=== PATIENT | male | born 1940 | race Caucasian/White ===

== ENCOUNTER 2016-04-07 05:58 | Day surgery (SDC) | payer OTHER, BC ==
[~2016-04-07] VITALS: Ht 177.8 cm; Wt 95.8 kg
[2016-04-07 06:48] VITALS: BP 179/96; PULSE 76; RESP 20; TEMP 97.9; O2SAT 93
[2016-04-07] MEDS ORDERED: MOBI15TA PO (06:58)
[2016-04-07] MEDS ORDERED: IBUP800T23 PO ×2 (06:58)
[2016-04-07] MEDS ORDERED: ZANT150T2 PO (06:58)
[2016-04-07] MEDS ORDERED: PERC10TA27 PO (06:58)
[2016-04-07] MEDS ORDERED: AMLO5TAB2 PO (06:58)
[2016-04-07] MEDS ORDERED: ATOR10TA15 PO (06:58)
[2016-04-07] MEDS ORDERED: METO-309 PO (06:58)
[2016-04-07] MEDS ORDERED: ACET1CAP18 PO (06:58)
[2016-04-07] MEDS ORDERED: ASPI81CH CHEW (06:58)
[2016-04-07] MEDS ORDERED: VANCOMYCIN 1000 MG/NS 250 ML - implanted port/tunneled catheter IV SCH ×2 (07:00)
[2016-04-07] MEDS ORDERED: CHLORHEXIDINE GLUCONATE 2 % 1 PACK (2 CLOTHS) TOPICAL SCH (07:00)
[2016-04-07] MEDS ORDERED: SODIUM CHLORIDE 0.9% 1000 ML IV SCH (07:00)
[2016-04-07] MEDS ORDERED: ceFAZolin 2 GM PREMIX 50 ML - implanted port/tunneled catheter insertion IV SCH (07:00)
[2016-04-07] MEDS ORDERED: POVIDONE IODINE 5% (ANTISEPSIS KIT) 4 APPLICATIONS EACH NARE SCH (07:00)
[2016-04-07] MEDS ORDERED: MIDAZOLAM HCL 5 MG/5 ML VIAL ONE (07:57)
[2016-04-07] MEDS ORDERED: fentaNYL CITRATE 250 MCG/5 ML AMP ONE (07:57)
[2016-04-07] MEDS ORDERED: LIDOCAINE 1%/EPINEPHrine 1:100,000 SOLN 20 ML VIAL ONE (08:21)
[2016-04-07 09:15] VITALS: BP 144/93; PULSE 58; RESP 16; TEMP 97.5; O2SAT 95
--- NOTE | 2016-04-07 09:22 | PD.RAD ---
Post Procedure Progress Note Pre Procedure Diagnosis: (1) Neuroendocrine carcinoma metastatic to multiple sites Post Procedure Diagnosis: (1) Neuroendocrine carcinoma metastatic to multiple sites Procedure Date: Apr 07, 2016 Supervising Radiologist: Liu Tompkins Proceduralist/Assist: Gretta Schmitz, RT(R)(CV), Jessica Noel RT(R) Anesthesia: Local, Analgesia, Conscious Sedation Plan of Activity Patient to Unit: ROPU Patient Condition: Good See PACS Report for procedural detail/treatment Central Venous Access Device Procedure 1 Right Internal Jugular Infusaport Placement single lumen Mongolian: 8 Liu Tompkins MD Apr 07, 2016 09:22
[2016-04-07 09:30] VITALS: BP_SYST 144; BP_SYST 152; BP_DIAS 75; BP_DIAS 94; PULSE 55; PULSE 58; RESP 16; TEMP 97.5; O2SAT 95
[2016-04-07] MEDS ORDERED: SODIUM CHLORIDE 0.9% FLUSH 5 ML FLUSH IVF PRN (09:30)
[2016-04-07 10:00] VITALS: BP 163/84; PULSE 57; RESP 16; O2SAT 95
[2016-04-07 10:30] VITALS: BP 147/85; PULSE 58; RESP 16; O2SAT 95
[2016-04-07 10:50] VITALS: BP 146/75; PULSE 55; RESP 16; O2SAT 95
--- NOTE | 2016-04-07 15:46 | RADRPT ---
EXAM DATE/TIME: 04/07/2016 08:27 [place] COMPARISON: No previous studies available for comparison. INDICATIONS : Patient with neuroendocrine carcinoma of the liver in need of [id number] placement. MEDICAL HISTORY : HTN, HLD, Diabetes, Cardiovascular disease, Kidney disease, Arthritis, Liver cancer, Melanoma SURGICAL HISTORY : Colonoscopy, Liver biopsy X2, Melanoma removal, Hip surgery, Bilateral knee surgery, Prostatectomy, H ernia repair ENCOUNTER: Initial ACUITY: 1 month PAIN SCORE: 0/10 FLUORO TIME: 1 minutes SEDATION TIME: 30 minutes ACCESS: Right internal jugular vein SEDATION: 1.) 1 mg midazolam (Versed) IV 2.) 100 mcg fentanyl (Sublimaze) IV Prophylactic antibiotics were administered with appropriate pre-procedure timing. Vancomycin within 2 hours of procedure, Ancef (or alternative) within 1 hour of procedure. DEVICE: 1. 8 Montenegrin single lumen Bard Power Port PROCEDURE : 1. Continuous pulse oximetry and EKG monitoring. 2. Intravenous conscious sedation. 3. Ultrasound guidance for venous access. 4. Fluoroscopic guided implantable central venous port placement. The patient was placed supine. The neck was prepped in sterile fashion. Full sterile technique was u sed, including cap, mask, sterile gloves and gown, and a large sterile sheet. Hand hygiene and 2% ch lorhexidine Betadine was utilized per protocol for cutaneous antisepsis with appropriate dry time for site. The skin and subcutaneous tissues were infiltrated with local anesthetic solution. Under direct ultrasound guidance, central venous access was accomplished in the targeted vessel. The ultrasound images depicting access guidance were stored and saved to PACS for permanent record. A s ubcutaneous pocket was created using blunt dissection. The port was introduced to the pocket. The c atheter tubing was fed through a subcutaneous tunnel to the venotomy site. The catheter tubing was c ut to a suitable length and then was introduced through a valved Peel-Away sheath and positioned with catheter tubing tip at the cavo-atrial junction level. The pocket incision was closed with subcutic ular Vicryl suture. Steri-Strips were applied. The port was flushed and locked with heparin solutio n per protocol. Sterile dressing was applied to the site. The patient tolerated the procedure well. Conscious sedation was performed with the prescribed dosages and duration as above. The patient piter ated the procedure well and there were no complications. EKG and oximetry remained stable throughout the procedure. The patient was sent to post anesthesia recovery in stable condition. CONCLUSION: Uncomplicated ultrasound and fluoroscopic guided implanted central venous port catheter placement as described in detail above. An 8 Montenegrin Power port was placed. Liu Tompkins MD on April 07, 2016 at 15:23 Board Certified Radiologist. This report was verified electronically.
== END 2016-04-07 11:30 | disposition home or self-care (01) ==
LOC: HROP 05:58 → HRIP 05:58 → HROP 11:30
PROVIDERS: ATTEND Internal Medicine Hematology & Oncology
DX: Z45.2 Encounter for adjustment and management of vascular access device (principal); C78.7 Secondary malignant neoplasm of liver and intrahepatic bile duct; C79.51 Secondary malignant neoplasm of bone; C80.1 Malignant (primary) neoplasm, unspecified; I10 Essential (primary) hypertension; E78.5 Hyperlipidemia, unspecified; E11.9 Type 2 diabetes mellitus without complications; Z79.01 Long term (current) use of anticoagulants
CPT/HCPCS: 36561; 76937; 77001; 99152; 99153; C1788; J1642; J2250; J3010

== ENCOUNTER 2016-05-15 10:41 | Emergency (ER) | payer OTHER, BC ==
[~2016-05-15] VITALS: Ht 177.8 cm; Wt 118.0 kg
[~2016-05-15 10:41] MED LIST: ACET1CAP18 PO; AMLO5TAB2 PO; ASPI81CH CHEW; ATOR10TA15 PO; IBUP800T23 PO; METO-309 PO; MOBI15TA PO; PERC10TA27 PO; ZANT150T2 PO
[2016-05-15 10:44] VITALS: BP 128/66; PULSE 103; RESP 15; TEMP 98.2; O2SAT 98
--- NOTE | 2016-05-15 13:21 | PD ---
HPI Chief Complaint: Abdominal Pain Time Seen by Provider: 13:04 Travel History International Travel<30 days: No Contact w/Intl Traveler<30days: No Traveled to known affect area: No History of Present Illness HPI This patient complains of having low hemoglobin. He says that he had his routine Sunday [facility] drawn [facility] the [facility]. He received a call that his hemoglobin was 6 and he should go to the emergency room. Patient has a history of cancer getting chemotherapy. He says his last hemoglobin was 8.3. Symptoms are mild severity. No alleviating factors. He denies rectal bleeding or melena or history of GI bleed. Duration one day. PFSH Past Medical History Arthritis: Yes Cancer: Yes (MELANOMA, LIVER CANCER) Cardiovascular Problems: Yes High Cholesterol: Yes Chemotherapy: No Diabetes: Yes Diminished Hearing: No Endocrine: No Genitourinary: Yes Hepatitis: No Immune Disorder: No Musculoskeletal: Yes Neurologic: No Psychiatric: No Reproductive: No Respiratory: No Immunizations Current: Yes Radiation Therapy: No Sickle Cell Disease: No Thyroid Disease: No Past Surgical History Abdominal Surgery: Yes (hernia repair) Genitourinary Surgery: Yes (TURP) Joint Replacement: Yes (RIGHT HIP) Prostatectomy: Yes (turp) Other Surgery: Yes (deviated septum) Social History Alcohol Use: Yes (3-4 glasses of wine daily) Tobacco Use: No Substance Use: No Allergies-Medications (Allergen,Severity, Reaction): Coded Allergies: No Known Allergies (Unverified , 05/15/16) Reported Meds & Prescriptions Reported Meds & Active Scripts Active Reported Mobic (Meloxicam) 15 Mg Tab 15 Mg PO DAILY Aspirin 81 Mg Chew 81 Mg CHEW DAILY Zantac (Ranitidine HCl) 150 Mg Tab 150 Mg PO BID Amlodipine (Amlodipine Besylate) 5 Mg Tab 5 Mg PO DAILY Lopressor (Metoprolol Tartrate) 50 Mg Tab Mg PO BID Ibuprofen 800 Mg Tab 800 Mg PO TID Ibuprofen 800 Mg Tab 800 Mg PO Q6HR PRN Tylenol (Acetaminophen) 325 Mg Cap 325 Mg PO Q6H PRN Atorvastatin (Atorvastatin Calcium) 10 Mg Tab 10 Mg PO HS Percocet (Oxycodone-Acetaminophen) 10-325 mg Tab 1 Tab PO Q4H PRN Review of Systems General / Constitutional: No: Fever Eyes: No: Visual changes HENT: No: Headaches Cardiovascular: No: Chest Pain or Discomfort Respiratory: No: Shortness of Breath Gastrointestinal: No: Abdominal Pain Genitourinary: No: Dysuria Musculoskeletal: No: Pain Skin: No Rash Neurologic: No: Weakness Psychiatric: No: Depression Endocrine: No: Polydipsia Hematologic/Lymphatic: No: Easy Bruising Physical Exam Narrative GENERAL: Well-nourished, well-developed patient in no apparent distress. SKIN: Warm and dry. HEAD: Atraumatic. Normocephalic. EYES: Pupils equal and round. No scleral icterus. No injection or drainage. ENT: No nasal bleeding or discharge. Mucous membranes pink and moist. NECK: Trachea midline. No JVD. CARDIOVASCULAR: Regular rate and rhythm. No murmur appreciated. RESPIRATORY: No accessory muscle use. Clear to auscultation. Breath sounds equal bilaterally. GASTROINTESTINAL: Abdomen soft, non-tender, nondistended. Hepatic and splenic margins not palpable. MUSCULOSKELETAL: No obvious deformities. No clubbing. No cyanosis. Trace symmetric edema in the feet and ankles. NEUROLOGICAL: Awake and alert. No obvious cranial nerve deficits. Motor grossly within normal limits. Normal speech. PSYCHIATRIC: Appropriate mood and affect; insight and judgment normal. Data Data Last Documented VS Vital Signs Date Time Temp Pulse Resp B/P Pulse Ox O2 Delivery O2 Flow Rate FiO2 05/15/16 10:44 98.2 103 15 128/66 98 Orders Iv Access Insert/Monitor (05/15/16 13:17) Complete Blood Count With Diff (05/15/16 13:17) Basic Metabolic Panel (Bmp) (05/15/16 13:17) Prothrombin Time / Inr (Pt) (05/15/16 13:17) Act Partial Throm Time (Ptt) (05/15/16 13:17) Type And Screen (05/15/16 13:17) Red Blood Cells (Rbc) (05/15/16 15:21) Labs Laboratory Tests Test 05/15/16 05/15/16 13:47 15:32 White Blood Count 11.4 TH/MM3 Red Blood Count 2.26 MIL/MM3 Hemoglobin 6.5 GM/DL Hematocrit 19.7 % Mean Corpuscular Volume 87.4 FL Mean Corpuscular Hemoglobin 28.8 PG Mean Corpuscular Hemoglobin 33.0 % Concent Red Cell Distribution Width 14.2 % Platelet Count 111 TH/MM3 Mean Platelet Volume 7.6 FL Neutrophils (%) (Auto) 77.5 % Lymphocytes (%) (Auto) 17.1 % Monocytes (%) (Auto) 4.2 % Eosinophils (%) (Auto) 0.5 % Basophils (%) (Auto) 0.7 % Neutrophils # (Auto) 8.8 TH/MM3 Lymphocytes # (Auto) 2.0 TH/MM3 Monocytes # (Auto) 0.5 TH/MM3 Eosinophils # (Auto) 0.1 TH/MM3 Basophils # (Auto) 0.1 TH/MM3 CBC Comment AUTO DIFF Differential Total Cells 100 Counted Neutrophils % (Manual) 48 % Band Neutrophils % 27 % Lymphocytes % 15 % Monocytes % 5 % Neutrophils # (Manual) 9.0 TH/MM3 Metamyelocytes 3 % Myelocytes 1 % Differential Comment FINAL DIFF MANUAL Blastocytes 1 % Toxic Granulation 1+ Platelet Estimate LOW Platelet Morphology Comment NORMAL Ovalocytes 1+ Keratocytes OCC Prothrombin Time 12.3 SEC Prothromb Time International 1.1 RATIO Ratio Activated Partial 23.2 SEC Thromboplast Time Sodium Level 140 MEQ/L Potassium Level 3.6 MEQ/L Chloride Level 107 MEQ/L Carbon Dioxide Level 25.1 MEQ/L Anion Gap 8 MEQ/L Blood Urea Nitrogen 18 MG/DL Creatinine 1.07 MG/DL Estimat Glomerular Filtration 68 ML/MIN Rate Random Glucose 140 MG/DL Calcium Level 8.0 MG/DL Blood Type O POSITIVE Antibody Screen NEGATIVE Crossmatch Leukocyte-Reduced Red Blood Cells Blood Bank Comment MDM Medical Decision Making Medical Screen Exam Complete: Yes Emergency Medical Condition: Yes Medical Record Reviewed: Yes Differential Diagnosis Symptomatic anemia, chemotherapy side effect, laboratory error Narrative Course I have reviewed the patient's electronic medical record. 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 Patient is basically asymptomatic. His anemia is not symptomatic and he is hemodynamically stable. He is not having GI bleed. Has brown Hemoccult negative stool. Likely due to chemotherapy. I reviewed with his oncologist Dr. Dr. Sim Bone. He is arranging for transfusion as an outpatient tomorrow morning and does not think he requires inpatient stay and I agree with that. Patient will stay with his son alexandria and get transfused in the morning. Diagnosis Primary Impression: Chemotherapy adverse reaction Qualified Code: T45.1X5A - Chemotherapy adverse reaction, initial encounter Additional Impression: Anemia Qualified Code: D64.81 - Anemia due to antineoplastic chemotherapy Additional Instructions: Follow-up tomorrow morning for transfusion as directed by Dr. Sim Bone Med/Other Pt SpecificInfo: Other Disposition: 01 DISCHARGE HOME Condition: Stable Edgardo Savage MD May 15, 2016 13:21
[2016-05-15 14:06] LABS: AUTOMATED NEUTROPHIL # 8.8 TH/MM3 (1.8-7.7); BASOPHIL # 0.1 TH/MM3 (0-0.2); BASOPHIL % 0.7 % (0.0-2.0); EOSINOPHIL # 0.1 TH/MM3 (0-0.4); EOSINOPHIL % 0.5 % (0.0-4.0); LYMPH % 17.1 % (9.0-44.0); MEAN CELL VOLUME 87.4 FL (80.0-100.0); MEAN CORPUSCULAR HEMOGLOBIN 28.8 PG (27.0-34.0); MONO % 4.2 % (0.0-8.0); NEUT % 77.5 % (16.0-70.0); PLATELET COUNT 111 TH/MM3 (150-450); RED BLOOD COUNT 2.26 MIL/MM3 (4.50-5.90); RED CELL DISTRIBUTION WIDTH 14.2 % (11.6-17.2); WHITE BLOOD COUNT 11.4 TH/MM3 (4.0-11.0)
[2016-05-15 14:10] LABS: HEMO FLAGS AUTO DIFF
[2016-05-15 14:13] LABS: HEMATOCRIT 19.7 % (39.0-51.0)
[2016-05-15 14:16] LABS: APTT (PATIENT) 23.2 SEC (24.3-30.1); INTERNATIONAL NORMALIZED RATIO 1.1 RATIO; PROTHROMBIN TIME - PATIENT 12.3 SEC (9.8-11.6)
[2016-05-15 14:27] LABS: BICARBONATE 25.1 MEQ/L (21.0-32.0); POTASSIUM 3.6 MEQ/L (3.5-5.1)
[2016-05-15 14:46] LABS: METAMYELOCYTES 3 % (0-1); MYELOCYTES 1 % (0-0); POLYS (SEG NEUTROPHILS) 48 % (16-70); WBC DIFF SAMPLE 100
[2016-05-15 14:47] LABS: BANDS 27 % (0-6); BLASTS 1 % (0-0); TOXIC GRANULATION 1+ (NORMAL)
[2016-05-15 14:48] LABS: OVALOCYTES 1+ (NORMAL); PLATELET ESTIMATE SMEAR LOW (NORMAL); PLATELET MORPHOLOGY NORMAL (NORMAL); SCAN/DIFF FINAL DIFF MANUAL
[2016-05-15 14:49] LABS: KERATOCYTES OCC (NORMAL)
[2016-05-15 15:00] VITALS: BP 132/71; PULSE 77; RESP 16; O2SAT 98
== END 2016-05-15 16:17 | disposition home or self-care (01) ==
LOC: NEPC 10:41
DX: D64.81 Anemia due to antineoplastic chemotherapy (principal); C22.9 Malignant neoplasm of liver, not specified as primary or secondary; T45.1X5A Adverse effect of antineoplastic and immunosuppressive drugs, initial encounter; Y92.9 Unspecified place or not applicable; E11.9 Type 2 diabetes mellitus without complications; Z79.899 Other long term (current) drug therapy; Z96.641 Presence of right artificial hip joint; Z85.820 Personal history of malignant melanoma of skin
CPT/HCPCS: 80048; 85007; 85027; 85610; 85730; 86850; 86900; 86901; 86920; 99283